=== PATIENT | male | born 1955 | race African-American/Black ===

== ENCOUNTER → 2017-05-31 | Outpatient (CLI) | payer BC, OTHER ==
[~2017-05-31] MED LIST: ALKA-SELTZER H1 EACH PO; AMLODIPINE BESY10 MG PO; ATENOLOL 100MG100 MG PO; COREG25 MG PO; HYDROCHLOROTHIA25 M2 PO; PRILOSEC20 MG PO; PROZAC20 MG PO; XANAX 0.5 MG0.5 MG PO
--- NOTE | ~2017-05-31 | 2DMMODE ---
[facility] [address] [place] [address] 2 D/M-MODE ECHOCARDIOGRAM Name: ANGIE REYES Room #: REG CL [facility]#: [id number] Admission: 05/31/17 Attend Phys: Deuce Harrington, Discharge: Date of : 59 Date of Service: 05/31/17 1846 Report #: [id number] THIS REPORT FOR: //name// APPROVED REPORT Study performed: 05/31/2017 11:13:15 EXAM: Comprehensive 2D, Doppler, and color-flow Echocardiogram Patient Location: Out-Patient Status: routine BSA: 2.00 HR: 65 bpm Rhythm: NSR Other Information Study Quality: Adequate Indications HTN 2D Dimensions RVDd: 29.81 mm LVEF(%): 58.26 (>50%) IVSd: 10.97 (7-11mm) LVOT Diam: 20.93 (18-24mm) LVDd: 41.55 mm PWd: 10.28 (7-11mm) Ascending Ao: 32.36 (22-36mm) LVDs: 28.91 (25-40mm) Aortic Root: 34.65 mm Abdi's LVEF: 58.26 % Volumes Left Atrial Volume (Systole) Single Plane 4CH: 25.23 mL Single Plane 2CH: 43.07 mL LA ESV Index: 18.00 mL/m2 Aortic Valve AoV Peak Abdias.: 1.16 m/s AO Peak Gr.: 5.41 mmHg LVOT Max P.22 mmHg LVOT Max V: 1.14 m/s RICHIE Vmax: 3.38 cm2 Mitral Valve E/A Ratio: 0.9 MV Decel. Time: 209.05 ms [facility] [place] [address] 2 D/M-MODE ECHOCARDIOGRAM Name: REYESANGIE Room #: REG [facility]#: [id number] Admission: 05/31/17 Attend Phys: Deuce Harrington, Discharge: Date of : 59 Date of Service: 05/31/17 1846 Report #: [id number] MV E Max Abdias.: 0.70 m/s MV A Abdias.: 0.75 m/s MV PHT: 60.63 ms IVRT: 83.04 ms Pulmonary Valve PV Peak Abdias.: 1.03 m/s PV Peak Gr.: 4.27 mmHg Pulmonary Vein P Vein S: 0.55 m/s P Vein A: 0.32 m/s P Vein D: 0.41 m/s P Vein A Dur.: 110.7 msec P Vein S/D Ratio: 1.34 Tricuspid Valve TR Peak Abdias.: 1.71 m/s RAP Estimate: 5.00 mmHg TR Peak Gr.: 11.65 mmHg PA Pressure: 17.00 mmHg Left Ventricle The left ventricle is normal size. There is normal LV segmental wall motion. There is normal left ventricular wall thickness. Left ventricular systolic function is normal. LVEF is 55-60%. Mild diastolic dysfunction is present (impaired relaxation pattern). Right Ventricle The right ventricle is normal size. The right ventricular systolic function is normal. Atria The left atrium size is normal. The right atrium size is normal. Aortic Valve Aortic valve leaflets are mildly thickened. No aortic regurgitation is present. There is no aortic valvular stenosis. Mitral Valve The mitral valve is normal in structure. Trace mitral regurgitation. No evidence of mitral valve stenosis. Tricuspid Valve The tricuspid valve is normal in structure. Trace tricuspid regurgitation. Estimated PAP is 17mmHg. Pulmonic Valve [address] [address] 2 D/M-MODE ECHOCARDIOGRAM Name: AMYANGIE CHRISTINA [id number] Admission: 05/31/17 Attend Phys: Deuce Harrington, Discharge: Date of : 59 Date of Service: 05/31/17 1846 Report #: [id number] The pulmonary valve is normal in structure. Trace pulmonic regurgitation. Great Vessels The aortic root is normal in size. The ascending aorta is normal in size. IVC is normal in size and collapses >50% with inspiration. Pericardium There is no pericardial effusion. <Conclusion> The left ventricle is normal size. There is normal left ventricular wall thickness. Left ventricular systolic function is normal. LVEF is 55-60%. Mild diastolic dysfunction is present (impaired relaxation pattern). Aortic valve leaflets are mildly thickened. Trace mitral regurgitation. Trace tricuspid regurgitation. Estimated PAP is 17mmHg. <ELECTRONICALLY SIGNED> By: Deuce Harrington MD, FACC 05/31/171845 45 45 Deuce Harrington MD, FACC /INF
== END ==
LOC: CV 08:33
DX: I50.30 Unspecified diastolic (congestive) heart failure (principal); I10 Essential (primary) hypertension